=== PATIENT | male | born 1945 | race Caucasian/White ===

== ENCOUNTER → 2024-02-18 09:43 | Outpatient (REF) | payer MEDICARE, OTHER, SELFPAY | LOC: RAD 09:43 | PROVIDERS: ATTENDING PHYSICIAN Surgery; FAMILY PHYSICIAN Family Medicine | DX: C61 Malignant neoplasm of prostate (principal); N13.2 Hydronephrosis with renal and ureteral calculous obstruction | CPT/HCPCS: 76770 ==

== ENCOUNTER → 2024-03-21 15:48 | Outpatient (REF) | payer MEDICARE, OTHER, SELFPAY | LOC: RAD 15:48 | PROVIDERS: ATTENDING PHYSICIAN Surgery; FAMILY PHYSICIAN Family Medicine | DX: N20.0 Calculus of kidney (principal) | CPT/HCPCS: 74018 ==